=== PATIENT | female | born 1950 | race Caucasian/White ===

== ENCOUNTER 2020-12-17 10:03 | Emergency (ER) | payer MEDICARE ==
[~2020-12-17] VITALS: Ht 177.8 cm; Wt 114.4 kg
[~2020-12-17 10:03] MED LIST: ALPR0.5T7 PO; CETI10TA18 PO; CHOL200052 PO; GLUC1CAP40 PO; HYDR25TA6 PO; LAMO150T3 PO; MULT-516 PO; OMEG-118 PO; OXYC10TA6 PO; TRAZ50TA66 PO
--- NOTE | 2020-12-17 10:20 | NUR ---
LATE ENTRY D/T PATIENT CARE: VA PERFORMED IN TRIAGE BY EDT, PT HAS NO VISION TO RT VISUAL FIELD, NOT EVEN ABLE TO VISUALIZE FIRST ROW OF EYE CHART. MD JOHNS NOTIFIED.
--- NOTE | 2020-12-17 10:47 | NUR ---
PT AMBULTORY TO ROOM 20 W/ C/O R EYE VISION LOSS. PT STATES SHE NOTICED LAST NIGHT HER VISION STARTED TO GO AND SHE HAD ISSUES VISUALIZING ANYTHING BUT WAS ABLE TO DISCERN COLORS. THIS AM PT AWOKE AND WAS UNABLE TO SEE ANYTHING FROM R EYE. PT STATES SHE SEE'S SMALL/BLACK W/ "MAYBE A WHITE STAR WHEN I BLINK". PT DENIES ANY WEAKNESS TO R SIDE OF BODY, NO DIFFICULTY TALKING, SWALLOWING. PT RESTING ON [employer]. MONITORS APPLIED. VSS.
--- NOTE | 2020-12-17 11:11 | NUR ---
PT RESTING ON GURNEY. NADN. SCHAFFER.
[2020-12-17 11:19] LABS: BASOPHILS % (AUTO) 1 % (0-1); EOSINOPHILS % (AUTO) 3 % (1-7); LYMPHOCYTES % (AUTO) 22 % (22-44); MEAN CORPUSCULAR HEMOGLOBIN 33.5 pg (27.0-34.8); MEAN CORPUSCULAR HGB CONC 34.4 g/dL (32.4-35.8); MEAN PLATELET VOLUME 6.5 fL (7.4-10.4); MONOCYTES % (AUTO) 9 % (2-9); NEUTROPHILS % (AUTO) 65 % (42-75); PLATELET COUNT 311 x10^3/uL (130-400); RED BLOOD COUNT 4.65 x10^6/uL (3.82-5.3); RED CELL DISTRIBUTION WIDTH 13.1 % (9.6-15.2)
[2020-12-17 11:21] LABS: MD NO
[2020-12-17 11:23] LABS: HCT (SEDRATE) 45.3 % (34.6-47.8)
[2020-12-17 11:32] LABS: ALANINE AMINOTRANSFERASE 30 U/L (12-78); ALBUMIN 3.6 g/dL (3.4-5.0); ANION GAP 3 mmol/L (5-15); C-REACTIVE PROTEIN, QUANT 0.46 mg/dL (0.02-0.49); CALCIUM 9.4 mg/dL (8.5-10.1); CHLORIDE 106 mmol/L (98-107)
[2020-12-17 11:34] LABS: ALKALINE PHOSPHATASE 78 U/L (45-117); BILIRUBIN,TOTAL 0.5 mg/dL (0.2-1.0); TOTAL PROTEIN 7.8 g/dL (6.4-8.2)
--- NOTE | 2020-12-17 12:08 | NUR ---
PT RESTING IN EYE CHAIR. NADN. SCHAFFER.
--- NOTE | 2020-12-17 12:54 | NUR ---
PT RESTING ON GURNEY. NADN. SCHAFFER.
[2020-12-17] MEDS ORDERED: OMNIPAQUE 350 MG/ML, 100ML BOTTLE ONE (12:55)
--- NOTE | 2020-12-17 13:13 | NUR ---
CT HEAD RESULTED. ERP DR. JOHNS NOTIFIED OF RESULT.
--- NOTE | 2020-12-17 13:17 | NUR ---
REPORT GIVEN TO KATHERYN RUSSO.
--- NOTE | 2020-12-17 13:41 | NUR ---
REPORT TAKEN FROM KATHERYN LEWIS, THIS RN ASSISTED US TECH WITH BUBBLE STUDY AT BEDSIDE. PT A&O, RESPS EVEN AND UNLABORED. ALL MONITORS IN PLACE. NADN. PT AWAITING MD RECHECK AND DISPO. REPORT GIVEN TO PUNEET ELIZONDO AT BEDSIDE.
--- NOTE | 2020-12-17 13:47 | NUR ---
BREAK RN: ECHO COMPLETE. PT POSITIONED FOR COMFORT. RESP EVEN AND UNLABORED. CALL LIGHT IN REACH. AWAITING CT.
[2020-12-17] MEDS ORDERED: OXYCODONE (13:53)
[2020-12-17] MEDS ORDERED: AMPH20CA7 PO (13:53)
[2020-12-17] MEDS ORDERED: LOSARTAN (13:53)
--- NOTE | 2020-12-17 14:24 | NUR ---
PUNEET RN: REPORT BACK TO RAFAELA CAMPA.
[2020-12-17] MEDS ORDERED: SODIUM CHLORIDE 0.9%, 500ML IVBOLUS ONE (14:30)
[2020-12-17] MEDS ORDERED: OXYcodone/APAP 10/325MG TABLET PO ONE (14:30)
--- NOTE | 2020-12-17 14:40 | NUR ---
PT UP TO BATHROOM WITH STEADY GAIT, ACCOMPANIED BY THIS RN. NOW BACK IN BED, IVF INFUSING. PT A&O, RESPS EVEN AND UNLABORED, NEURO INTACT. NSR ON KNOT CUTTER WITH NO ECTOPY. PT AWAITING MRI.
[2020-12-17] MEDS ORDERED: OXYcodone IR 5MG TABLET PO ONE (15:00)
[2020-12-17] MEDS ORDERED: OXYcodone IR 5MG TABLET ONE (15:16)
--- NOTE | 2020-12-17 15:30 | NUR ---
PT MEDICATED PER EMAR FOR CHRONIC GENERALIZED PAIN (SECONDARY TO FIBROMYALGIA), TOLERATED WELL. PT AWAITING MRI AND DISPO.
[2020-12-17] MEDS ORDERED: GADOTERATE 7.5 MMOL/15ML SYR ONE (16:19)
[2020-12-17] MEDS ORDERED: GADOTERATE 5 MMOL/10ML SYR ONE (16:19)
--- NOTE | 2020-12-17 17:04 | NUR ---
PT BACK FROM MRI, ALL RESULTS BACK, CHART UP FOR RECHECK, AWAITING MD AND DISPO.
--- NOTE | 2020-12-17 17:08 | NUR ---
pt a&o, resps even and unlabored. nsr on threat monitoring analyst with no ectopy. pt states she is starting to have vision return to right visual field, now able to see what looks like shadows in right visual field.
--- NOTE | 2020-12-17 18:30 | NUR ---
LATE ENTRY FOR 1830 D/T PATIENT CARE: THIS RN REVIEWED ALL RESULTS WITH MARIAMA JOHNS MD STATES HE HAS CONSULTED WITH NEUROLOGY AND OPTHOMALOGY. ADMIT NOT NECESSARY PER MD, PT IS TO FOLLOW UP WITH OPTHO TOMORROW AND CARDIOLOGY AND PCP THIS WEEK. PT IS A&O, RESPS EVEN AND UNLABORED, PT HAS REMOVED [employer] MANAGER THERAPY SHE IS SEEKING DISCHARGE. NEURO INTACT WITH NO DEFICITS. PT HAS HAD NO FURTHER VISUAL LOSS. PT AMBULATORY WITH STEADY GAIT, UNASSISSTED. NO S/SX ASPIRATION WITH PO INTAKE OF FOOD AND WATER GIVEN.
[2020-12-17 18:35] VITALS: BP 151/87
--- NOTE | 2020-12-17 19:10 | NUR ---
LATE ENTRY FOR 1910: PT GIVEN DC INSTRUCTIONS, EDUCATED REGARDING RECOMMENDATIONS FOR FOLLOW UP (OPTHO, CARDIOLOGY AND PCP), RETURN CRITERIA AND RECC FOR DAILY ASA 325 MG. PIV DC'D WITH TIP INTACT. FACE SYMMETRICAL, NEURO INTACT. VSS. PT VERBALIZES SHE MAY NOT DRIVE UNTIL CLEARED BY OPTHO/PCP. PT AMBULATORY WITH STEADY GAIT, GIVEN WC ESCORT TO DC WHERE FRIEND IS TO DRIVE HER HOME. SPEECH CLEAR, PT A&OX4, VERBALIZES UNDERSTANDING OF DC INSTRUCTIONS.
== END 2020-12-17 19:09 | disposition home or self-care (01) ==
LOC: ED 11:05
DX: H54.61 Unqualified visual loss, right eye, normal vision left eye (principal); I63.9 Cerebral infarction, unspecified; I10 Essential (primary) hypertension; H34.9 Unspecified retinal vascular occlusion
CPT/HCPCS: 36415; 70450; 70496; 70498; 70553; 80053; 85025; 85651; 86140; 93306; 99285; A9575; J7040; Q9967